=== PATIENT | female | born 1960 | race Caucasian/White ===

== ENCOUNTER 2020-09-09 07:39 | Emergency (ER) | payer SELFPAY ==
[2020-09-09] MEDS ORDERED: CYCLOBENZAPRINE 10 MG TAB ONE (08:53)
[2020-09-09] MEDS ORDERED: HYDROCODONE/APAP 7.5/325 MG TAB ONE (10:09)
--- NOTE | 2020-09-09 10:41 | RAD REPORT ---
EXAM DESCRIPTION: Ribs Right - 09/09/2020 10:17 am CLINICAL HISTORY: fall COMPARISON: No comparisons FINDINGS: Mildly displaced fractures of the anterior ninth and tenth ribs noted. No pathologic compo nent. These are and I have linear are pattern typical for trauma. No other rib fractures confirmed. No aggressive rib lesion. No underlying pneumothorax, effusion, infiltrate or pulmonary contusion. IMPRESSION: Mildly displaced anterior right ninth and tenth rib fractures. No pneumothorax or pulmonary contusion.
--- NOTE | 2020-09-09 13:19 | EDPHYS ---
Physician Documentation [facility] Name: Brianna Garibay Age: 60 yrs Sex: Female : 1960 Arrival Date: 09/09/2020 Time: 07:46 Bed 17 Private MD: ED Physician Erasto Bueno HPI: 09/09 11:13 This 60 yrs old Female presents to ER via Ambulatory with complaints of Fall kb Injury - Rib/Back Pain. 11:13 Details of fall: The patient fell from an upright position. Onset: The symptoms/episode kb began/occurred 7 day(s) ago. Associated injuries: The patient sustained right low back and right mid back and right subscapular area, ecchymosis, painful injury. Severity of symptoms: At their worst the symptoms were moderate, in the emergency department the symptoms are unchanged. The patient has not experienced similar symptoms in the past. The patient has not recently seen a physician. 11:16 Pt reports she slipped on travel trailer steps, reached and grabbed the handle to catch kb herself. pain to right side of back.. Historical: - Allergies: 11:27 No Known Allergies; ll1 - Immunization history:: Last tetanus immunization: up to date. - Immunization history: Last tetanus immunization: - up to date. - Social history:: Smoking status: unknown Smoking status: . ROS: 11:12 Constitutional: Negative for fever, chills, and weight loss, Cardiovascular: Negative kb for chest pain, palpitations, and edema, Respiratory: Negative for shortness of breath, cough, wheezing, and pleuritic chest pain, Abdomen/GI: Negative for abdominal pain, nausea, vomiting, diarrhea, and constipation, MS/Extremity: Negative for injury and deformity, Neuro: Negative for headache, weakness, numbness, tingling, and seizure. 11:12 Back: Positive for pain at rest, pain with movement, of the right subscapular area and right mid back. 11:12 Skin: Positive for ecchymosis, of the right low back. Exam: 11:12 Constitutional: This is a well developed, well nourished patient who is awake, alert, kb and in no acute distress. Head/Face: Normocephalic, atraumatic. Chest/axilla: Normal chest wall appearance and motion. Nontender with no deformity. No lesions are appreciated. Cardiovascular: Regular rate and rhythm with a normal S1 and S2. No gallops, murmurs, or rubs. Normal PMI, no JVD. No pulse deficits. Respiratory: Lungs have equal breath sounds bilaterally, clear to auscultation and percussion. No rales, rhonchi or wheezes noted. No increased work of breathing, no retractions or nasal flaring. Abdomen/GI: Soft, non-tender, with normal bowel sounds. No distension or tympany. No guarding or rebound. No evidence of tenderness throughout. MS/ Extremity: Pulses equal, no cyanosis. Neurovascular intact. Full, normal range of motion. Neuro: Awake and alert, GCS 15, oriented to person, place, time, and situation. Cranial nerves II-XII grossly intact. Motor strength 5/5 in all extremities. Sensory grossly intact. Cerebellar exam normal. Normal gait. 11:12 Back: pain, that is moderate, of the right subscapular area and right mid back, ROM is normal, normal spinal alignment noted. 11:12 Skin: injury, contusion(s), that are superficial, of the right low back and right mid back. Vital Signs: 08:32 BP 145 / 74; Pulse 68; Resp 18; Pulse Ox 99% on R/A; Weight 74.84 kg; Height 5 ft. 5 dm5 in. (165.10 cm); Pain 2/10; 10:47 BP 144 / 83; Pulse 51; Resp 17; Pulse Ox 99% on R/A; Pain 3/10; ll1 08:32 Body Mass Index 27.46 (74.84 kg, 165.10 cm) dm5 [place] Coma Score: 09:59 Eye Response: spontaneous(4). Verbal Response: oriented(5). Motor Response: obeys ll1 commands(6). Total: 15. Trauma Score (Adult): 09:59 Eye Response: spontaneous(1); Verbal Response: oriented(1); Motor Response: obeys ll1 commands(2); Systolic BP: > 89 mm Hg(4); Respiratory Rate: 10 to 29 per min(4); [place] Score: 15; Trauma Score: 12 MDM: 09:50 Patient medically screened. sofia 11:13 Data reviewed: vital signs, nurses notes. Data interpreted: Pulse oximetry: on room air kb is 99 %. Interpretation: normal. Counseling: I had a detailed discussion with the patient and/or guardian regarding: the historical points, exam findings, and any diagnostic results supporting the discharge/admit diagnosis, radiology results, the need for outpatient follow up, a family practitioner, to return to the emergency department if symptoms worsen or persist or if there are any questions or concerns that arise at home. Response to treatment: the patient's symptoms have markedly improved after treatment. Administered Medications: 08:40 Drug: Flexeril 10 mg Route: PO; dm5 09:57 Follow up: Response: No adverse reaction; RASS: Alert and Calm (0) ll1 09:57 Drug: [place] (7.5 mg-325 mg) 1 tabs {Note: rass 0.} Route: PO; ll1 11:26 Follow up: Response: No adverse reaction; Pain is decreased; RASS: Alert and Calm (0) ll1 Disposition: 15:01 Co-signature as Attending Physician, Erasto Bueno MD I agree with the assessment and kdr plan of care. Disposition: 09/09/20 11:09 Discharged to Home. Impression: Multiple fractures of ribs, right side. - Condition is Stable. - Discharge Instructions: Rib Fracture, [id number]. - Prescriptions for Tylenol- Codeine #3 300-30 mg Oral Tablet - take 1 tablet by ORAL route every 6 hours As needed; 15 tablet. Cyclobenzaprine 10 mg Oral Tablet - take 1 tablet by ORAL route every 8 hours As needed; 21 tablet. - Medication Reconciliation Form, Thank You Letter, Antibiotic Education, Prescription Opioid Use form. - Follow up: Emergency Department; When: As needed; Reason: Worsening of condition. Follow up: Private Physician; When: 2 - 3 days; Reason: Recheck today's complaints, Continuance of care, Re-evaluation by your physician. Signatures: Kavita Zuniga FNP-C FNP-Ckb Markwardt, Deana, RN RN dm5 Erasto Bueno MD MD kdr Lewis, Lynsay RN RN ll1 Corrections: (The following items were deleted from the chart) 11:28 11:09 09/09/2020 11:09 Discharged to Home. Impression: Multiple fractures of ribs, ll1 right side. Condition is Stable. Forms are Medication Reconciliation Form, Thank You Letter, Antibiotic Education, Prescription Opioid Use. Follow up: Emergency Department; When: As needed; Reason: Worsening of condition. Follow up: Private Physician; When: 2 - 3 days; Reason: Recheck today's complaints, Continuance of care, Re-evaluation by your physician. kb
--- NOTE | 2020-09-09 13:20 | ER ---
Nurse's Notes [facility] Name: Brianna Garibay Age: 60 yrs Sex: Female : 1960 Arrival Date: 09/09/2020 Time: 07:46 Bed 17 Private MD: Diagnosis: Multiple fractures of ribs, right side Presentation: 09/09 08:32 Chief complaint: Patient states: pt slipped and fell down stairs last Sat, bruise and dm5 pain on right ribs and hip, pain medication at home is no longer, pain rated at 2/10 at this time, at worst 10/10. Coronavirus screen: Client denies travel out of the [place] in the last 14 days. At this time, the client does not indicate any symptoms associated with coronavirus-19. Ebola Screen: Patient negative for fever greater than or equal to 101.5 degrees Fahrenheit, and additional compatible Ebola Virus Disease symptoms Patient denies exposure to infectious person. Patient denies travel to an Ebola-affected area in the 21 days before illness onset. No symptoms or risks identified at this time. Initial Sepsis Screen: Does the patient meet any 2 criteria? No. Patient's initial sepsis screen is negative. Does the patient have a suspected source of infection? No. Patient's initial sepsis screen is negative. Risk Assessment: Do you want to hurt yourself or someone else? Patient reports no desire to harm self or others. Onset of symptoms was September 03, 2020. 08:32 Method Of Arrival: Ambulatory dm5 08:32 Acuity: VALORIE 4 dm5 10:40 Care prior to arrival: Medication(s) given: Motrin. Mechanism of Injury: Fall. Trauma ll1 event details: Injury occurred in the [facility]. Trauma Activation: Not Applicable Physician: ED Physician; Name: ; Notified At: ; Arrived At: Physician: General Surgeon; Name: ; Notified At: ; Arrived At: Physician: Radiology; Name: ; Notified At: ; Arrived At: Physician: Respiratory; Name: ; Notified At: ; Arrived At: Physician: Lab; Name: ; Notified At: ; Arrived At: Historical: - Allergies: 11:27 No Known Allergies; ll1 - Immunization history:: Last tetanus immunization: up to date. - Immunization history: Last tetanus immunization: - up to date. - Social history:: Smoking status: unknown Smoking status: . Screenin:58 Abuse screen: Denies threats or abuse. Nutritional screening: No deficits noted. ll1 Tuberculosis screening: No symptoms or risk factors identified. Fall Risk Total Easley Fall Scale indicates No Risk (0-24 pts). Primary Survey: 09:58 NO uncontrolled hemorrhage observed. A: The patient is alert. Airway: patent, No ll1 supplemental oxygen in use on arrival. Trachea midline. Breathing/Chest: Respiratory pattern: regular, Respiratory effort: spontaneous, Breath sounds: Chest inspection: symmetrical rise and fall of the chest. Circulation: Skin color: pink. Disability Alert. Exposure/Environment: There is no evidence of uncontrolled external bleeding. A warming method has been applied: A warm blanket has been provided to the patient. 10:40 Reassessment Airway Airway Patent Breathing/Chest Respiratory pattern Regular ll1 Respiratory effort Spontaneous Unlabored Breath sounds Clear Chest inspection Symmetrical Circulation Pulses Palpable. Assessment: 10:40 General: Appears uncomfortable, Behavior is calm, cooperative, appropriate for age. ll1 Pain: Complains of pain in R rib cage/R hip Quality of pain is described as aching, Pain began 2-3 days ago. Neuro: No deficits noted. Cardiovascular: No deficits noted. Respiratory: No deficits noted. Musculoskeletal: Circulation, motion, and sensation intact. Capillary refill < 3 seconds, Range of motion: intact in all extremities, Tenderness present in R ribs/R hip Reports pain in R rib cage/Rhip. Injury Description: Bruise fell down hard steps. Vital Signs: 08:32 BP 145 / 74; Pulse 68; Resp 18; Pulse Ox 99% on R/A; Weight 74.84 kg; Height 5 ft. 5 dm5 in. (165.10 cm); Pain 2/10; 10:47 BP 144 / 83; Pulse 51; Resp 17; Pulse Ox 99% on R/A; Pain 3/10; ll1 08:32 Body Mass Index 27.46 (74.84 kg, 165.10 cm) dm5 [place] Coma Score: 09:59 Eye Response: spontaneous(4). Verbal Response: oriented(5). Motor Response: obeys ll1 commands(6). Total: 15. Trauma Score (Adult): 09:59 Eye Response: spontaneous(1); Verbal Response: oriented(1); Motor Response: obeys ll1 commands(2); Systolic BP: > 89 mm Hg(4); Respiratory Rate: 10 to 29 per min(4); Flo Score: 15; Trauma Score: 12 ED Course: 07:46 Patient arrived in ED. am2 08:35 Triage completed. dm5 09:34 Kavita Zuniga FNP-C [facility]. kb 09:34 Erasto Bueno MD is Attending Physician. kb 09:53 Darrius Trimble, RN is Primary Nurse. ll1 09:59 Arm band placed on right wrist. Patient placed in an exam room, on a stretcher. ll1 10:35 Thermoregulation: warm blanket given to patient. ll1 10:40 Patient has correct armband on for positive identification. Bed in low position. Call ll1 light in reach. Pulse ox on. NIBP on. 10:40 No provider procedures requiring assistance completed. Patient did not have IV access ll1 during this emergency room visit. 10:40 Patient maintains SpO2 saturation greater than 95% on room air. ll1 Administered Medications: 08:40 Drug: Flexeril 10 mg Route: PO; dm5 09:57 Follow up: Response: No adverse reaction; RASS: Alert and Calm (0) ll1 09:57 Drug: [place] (7.5 mg-325 mg) 1 tabs {Note: rass 0.} Route: PO; ll1 11:26 Follow up: Response: No adverse reaction; Pain is decreased; RASS: Alert and Calm (0) ll1 Output: 11:28 Urine: 0ml; Total: 0ml. ll1 Outcome: 11:09 Discharge ordered by . kb 11:27 Discharged to home ambulatory. ll1 11:27 Condition: stable 11:27 Discharge instructions given to patient, Instructed on discharge instructions, follow up and referral plans. no drinking with medication, no driving heavy equipment, medication usage, Demonstrated understanding of instructions, follow-up care, medications, Prescriptions given X 2. 11:28 Patient's length of stay was not longer than 2 hours. ll1 11:28 Patient left the ED. ll1 Signatures: Kavita Zuniga FNP-C FNP-Ckb Markwardt, Deana RN RN dm5 Steffany Whaley 2 Darrius Trimble, RN RN ll1
[2020-09-12 13:09] VITALS: O2SAT 99
[2020-09-12 13:10] VITALS: BP 144/83
== END 2020-09-09 11:28 | disposition home or self-care (01) ==
LOC: ER 07:39
DX: S22.41XA Multiple fractures of ribs, right side, initial encounter for closed fracture (principal); W10.8XXA Fall (on) (from) other stairs and steps, initial encounter; Y93.89 Activity, other specified; Y92.89 Other specified places as the place of occurrence of the external cause
CPT/HCPCS: 99284